=== PATIENT | female | born 1990 | race Caucasian/White ===

== ENCOUNTER 2021-10-29 11:59 | Day surgery (SDC) | payer OTHER ==
[2021-10-29 12:05] VITALS: BMI 28.9
[2021-10-29] MEDS ORDERED: ACETAMINOPHEN 1000 MG/100 ML BAG IVPB ONE (12:23)
[2021-10-29] MEDS ORDERED: SODIUM CHLORIDE 1,000 ML IV STA (12:23)
[2021-10-29] MEDS ORDERED: FAMOTIDINE 20 MG/50 ML IVPB 20 MG/50 ML MG IVPB ONE (12:28)
[2021-10-29] MEDS ORDERED: ACETAMINOPHEN INJECTION 100 ML IVPB ONE (12:37)
[2021-10-29] MEDS ORDERED: FAMOTIDINE 10 MG/ML VIAL IVPB ONE (12:37)
[2021-10-29 13:19] LABS: BASO % 0.7 % (0-2.0); EOS % 0.4 % (0-4.5); HEMATOCRIT 39.4 % (32.4-45.2); LYMPH % 31.1 % (8-40); MCH 28.4 pg (25.7-33.7); MEAN CELL VOLUME 86.3 fl (80-96); MEAN PLT VOLUME 6.7 fl (7.5-11.1); MONO % 6.6 % (3.8-10.2); NEUT % 61.2 % (42.8-82.8); PLATELET COUNT 415 10^3/uL (134-434); RBC 4.57 M/mm3 (3.60-5.2); RDW 14.3 % (11.6-15.6); WHITE BLOOD COUNT 8.8 K/mm3 (4.0-10.0)
[2021-10-29 13:47] LABS: CALCIUM 9.2 mg/dL (8.5-10.1)
[2021-10-29 13:48] LABS: BLOOD UREA NITROGEN 7.1 mg/dL (7-18)
[2021-10-29 13:51] LABS: CREATININE 0.6 mg/dL (0.55-1.3)
[2021-10-29 13:52] LABS: BILIRUBIN,TOTAL 0.7 mg/dL (0.2-1)
[2021-10-29 15:14] LABS: HCG,QUALITATIVE URINE Negative
[2021-10-29 15:34] LABS: URINE APPEARANCE CLEAR; URINE BILIRUBIN NEGATIVE (NEGATIVE); URINE COLOR YELLOW; URINE GLUCOSE (UA) NEGATIVE (NEGATIVE); URINE KETONE NEGATIVE (NEGATIVE); URINE LEUK ESTERASE NEGATIVE (NEGATIVE); URINE NITRITE NEGATIVE (NEGATIVE); URINE PROTEIN TRACE (NEGATIVE); URINE UROBILINOGEN 0.2 mg/dL (0.2-1.0)
[2021-10-29] MEDS ORDERED: ONDANSETRON 4 MG/2 ML VIAL IVPUSH PRN (22:48)
[2021-10-29] MEDS ORDERED: ACETAMINOPHEN 1000 MG/100 ML BAG IVPB PRN (22:49)
[2021-10-30] MEDS: LACTATED RINGERS SOLUTION 1,000 ML IV SCH ×3 (01:54→16:20)
[2021-10-30 09:05] LABS: HEMATOCRIT 37.8 % (32.4-45.2); HEMOGLOBIN 12.5 GM/dL (10.7-15.3); MCH 28.7 pg (25.7-33.7); MCHC 33.1 g/dl (32.0-36.0); MEAN CELL VOLUME 86.5 fl (80-96); MEAN PLT VOLUME 6.8 fl (7.5-11.1); PLATELET COUNT 391 10^3/uL (134-434); RBC 4.37 M/mm3 (3.60-5.2); RDW 14.1 % (11.6-15.6); WHITE BLOOD COUNT 8.1 K/mm3 (4.0-10.0)
[2021-10-30 09:33] LABS: MAGNESIUM 2.4 mg/dL (1.8-2.4)
[2021-10-30 09:34] LABS: BLOOD UREA NITROGEN 5.5 mg/dL (7-18)
[2021-10-30 09:37] LABS: CREATININE 0.6 mg/dL (0.55-1.3); PHOSPHOROUS 3.1 mg/dL (2.5-4.9)
[2021-10-30 11:40] LABS: INR 1.16 (0.83-1.09); PROTHROMBIN TIME (PATIENT) 13.4 SEC (9.7-13.0)
[2021-10-30 11:43] LABS: ACTIVATED PTT 33.5 SECONDS (25.2-36.5)
[2021-10-30] MEDS ORDERED: BENZOIN/ALOE VERA/STORAX/TOLU 58 ML BOTTLE ONE (12:54)
[2021-10-30] MEDS ORDERED: BUPIVACAINE HCL/PF 0.5% (5MG/ML) 10 ML VIAL ONE (12:54)
[2021-10-30] MEDS ORDERED: MIDAZOLAM HCL 2 MG/2 ML SINGLE DOSE VIAL ONE (13:25)
[2021-10-30] MEDS ORDERED: PROPOFOL 20 ML ONE ×2 (13:25→15:09)
[2021-10-30] MEDS ORDERED: LIDOCAINE HCL/PF 2% SDV 5ML VIAL ONE (13:26)
[2021-10-30] MEDS ORDERED: ROCURONIUM BROMIDE 50 MG/5 ML SYRINGE ONE (13:27)
[2021-10-30] MEDS ORDERED: ceFAZolin SODIUM 1 GM VIAL IVPB ONE (13:50)
[2021-10-30] MEDS ORDERED: BUPIVACAINE HCL/PF 0.5% (5MG/ML) 10 ML VIAL NR ONE (14:03)
[2021-10-30] MEDS ORDERED: DEXAMETHASONE SOD PHOSPHATE 4 MG/1 ML VIAL ONE (14:19)
[2021-10-30] MEDS ORDERED: ceFAZolin SODIUM 1 GM VIAL ONE (14:37)
[2021-10-30] MEDS ORDERED: ONDANSETRON 4 MG/2 ML VIAL ONE (15:02)
[2021-10-30] MEDS ORDERED: KETOROLAC TROMETHAMINE 30 MG/1 ML VIAL ONE (15:04)
[2021-10-30] MEDS ORDERED: GLYCOPYRROLATE 0.2 MG/1 ML VIAL ONE (15:04)
[2021-10-30] MEDS ORDERED: NEOSTIGMINE METHYLSULFATE 0.5 MG/1 ML - 10 ML MDV ONE (15:05)
[2021-10-30] MEDS ORDERED: oxyCODONE HCL 5 MG TABLET PO PRN ×2 (15:31)
[2021-10-30] MEDS ORDERED: ACETAMINOPHEN 1000 MG/100 ML BAG IVPB PRN (15:46)
[2021-10-30] MEDS ORDERED: ONDANSETRON 4 MG/2 ML VIAL IVPUSH PRN (15:46)
[2021-10-31] MEDS: LACTATED RINGERS SOLUTION 1,000 ML IV SCH (03:13)
[2021-10-31 12:16] VITALS: BP 122/69; PULSE 65; TEMP 98.2
== END 2021-10-31 15:13 | disposition home or self-care (01) ==
LOC: JER 11:59 → JASU-SURG 22:02 → SUATTDRO 22:02 → J8W 10-30 01:37 → JASU-SURG 10-31 15:13
PROVIDERS: ATTEND Internal Medicine
PROC: 0FT44ZZ Resection of Gallbladder, Percutaneous Endoscopic Approach (ICD-10-PCS; principal; 2021-10-29)
DX: K81.0 Acute cholecystitis (principal)
CPT/HCPCS: 36415; 74176-TC; 74177-TC; 76705-TC; 80048; 80053; 81003; 83036; 83690; 83735; 84100; 84443; 84703; 85025; 85027; 85610; 85730; 86850; 86900; 86901; 88304-TC; 93005; 93010; 94760; 99285-25; C9803-CS; Q9967; U0003; U0005

== ENCOUNTER 2021-11-05 15:35 | Day surgery (SDC) | payer OTHER ==
[2021-11-05] MEDS ORDERED: SODIUM CHLORIDE 0.9% 500 ML INFUS.BAG IV ONE (16:12)
[2021-11-05] MEDS ORDERED: ACETAMINOPHEN 1000 MG/100 ML BAG IVPB ONE (16:12)
[2021-11-05] MEDS ORDERED: ACETAMINOPHEN INJECTION 100 ML IVPB ONE (16:17)
[2021-11-05] MEDS ORDERED: ONDANSETRON 4 MG/2 ML VIAL IVPUSH ONE (17:02)
[2021-11-05] MEDS ORDERED: FAMOTIDINE 20 MG/50 ML IVPB 20 MG/50 ML MG IVPB ONE (17:02)
[2021-11-05 17:50] LABS: BASO % 0.3 % (0-2.0); EOS % 0.4 % (0-4.5); HEMATOCRIT 42.7 % (32.4-45.2); HEMOGLOBIN 14.3 GM/dL (10.7-15.3); LYMPH % 13.4 % (8-40); MCH 28.9 pg (25.7-33.7); MCHC 33.5 g/dl (32.0-36.0); MEAN CELL VOLUME 86.3 fl (80-96); MEAN PLT VOLUME 6.7 fl (7.5-11.1); MONO % 5.6 % (3.8-10.2); NEUT % 80.3 % (42.8-82.8); PLATELET COUNT 426 10^3/uL (134-434); RBC 4.94 M/mm3 (3.60-5.2); RDW 14.4 % (11.6-15.6); WHITE BLOOD COUNT 11.2 K/mm3 (4.0-10.0)
[2021-11-05 17:56] LABS: INR 1.15 (0.83-1.09); PROTHROMBIN TIME (PATIENT) 13.3 SEC (9.7-13.0)
[2021-11-05 17:58] LABS: ACTIVATED PTT 36.2 SECONDS (25.2-36.5)
[2021-11-05] MEDS ORDERED: FAMOTIDINE 10 MG/ML VIAL IVPB ONE (18:09)
[2021-11-05] MEDS ORDERED: ONDANSETRON 4 MG/2 ML VIAL ONE (18:09)
[2021-11-05 18:21] LABS: CALCIUM 10.2 mg/dL (8.5-10.1)
[2021-11-05 18:22] LABS: ALBUMIN 4.8 g/dl (3.4-5.0); BLOOD UREA NITROGEN 7.6 mg/dL (7-18)
[2021-11-05 18:25] LABS: CREATININE 0.7 mg/dL (0.55-1.3)
[2021-11-05 18:26] LABS: EPI CELLS 26 /uL (0-25.1); HYALINE CASTS 2 /uL (0-3.1); PH,URINE 6.5 (5.0-8.0); URINE APPEARANCE CLEAR; URINE BACTERIA 392 /uL (0-1359); URINE BILIRUBIN NEGATIVE (NEGATIVE); URINE COLOR DK YELLOW; URINE GLUCOSE (UA) NEGATIVE (NEGATIVE); URINE KETONE 1+ (NEGATIVE); URINE LEUK ESTERASE NEGATIVE (NEGATIVE); URINE NITRITE NEGATIVE (NEGATIVE); URINE PROTEIN 2+ (NEGATIVE); URINE RBC 51 /uL (0-23.9); URINE UROBILINOGEN 0.2 mg/dL (0.2-1.0); URINE WBC 10 /uL (0-25.8)
[2021-11-05 18:26] LABS: TOT PROT 9.3 g/dl (6.4-8.2)
[2021-11-05 18:27] LABS: BILIRUBIN,TOTAL 0.8 mg/dL (0.2-1)
[2021-11-05] MEDS ORDERED: PIPERACILLIN/TAZOB 3.375 GM 3.375 GM/50 ML BAG IVPB ONE (20:17)
[2021-11-05] MEDS: PIPERACILLIN/TAZOB 3.375 GM 3.375 GM in DEXTROSE 5%-WATER - 50 ML IVPB ONE ×2 (20:49→21:21)
[2021-11-05] MEDS ORDERED: LACTATED RINGERS SOLUTION 1,000 ML/1,000 ML INFUS.BAG IV SCH (23:45)
[2021-11-05] MEDS ORDERED: CEFOXITIN SODIUM 2 GM in DEXTROSE 5%-WATER - 100 ML IVPB SCH (23:45)
[2021-11-06] MEDS ORDERED: DEXTROSE 5%-WATER 100 ML IVPB ONE ×2 (01:33→10:27)
[2021-11-06] MEDS ORDERED: DOXYCYCLINE HYCLATE 100 MG VIAL ONE ×2 (01:33→10:26)
[2021-11-06] MEDS: DOXYCYCLINE INJECTION 100 MG in DEXTROSE 5%-WATER 100 ML IVPB SCH ×2 (01:42→10:30)
[2021-11-06] MEDS ORDERED: SODIUM CHLORIDE NASAL SPRAY 44 ML BOTTLE NS PRN ×2 (02:20→18:59)
[2021-11-06 02:30] VITALS: BMI 26.9
[2021-11-06 08:29] LABS: BASO % 0.4 % (0-2.0); EOS % 2.4 % (0-4.5); HEMATOCRIT 33.4 % (32.4-45.2); HEMOGLOBIN 11.4 GM/dL (10.7-15.3); LYMPH % 23.3 % (8-40); MCH 29.3 pg (25.7-33.7); MCHC 34.2 g/dl (32.0-36.0); MEAN CELL VOLUME 85.6 fl (80-96); MEAN PLT VOLUME 6.7 fl (7.5-11.1); MONO % 9.5 % (3.8-10.2); NEUT % 64.4 % (42.8-82.8); PLATELET COUNT 312 10^3/uL (134-434); RDW 14.4 % (11.6-15.6); WHITE BLOOD COUNT 8.8 K/mm3 (4.0-10.0)
[2021-11-06 09:00] LABS: BLOOD UREA NITROGEN 4.5 mg/dL (7-18); MAGNESIUM 1.9 mg/dL (1.8-2.4)
[2021-11-06 09:03] LABS: CREATININE 0.6 mg/dL (0.55-1.3)
[2021-11-06 09:04] LABS: BILIRUBIN,TOTAL 0.9 mg/dL (0.2-1)
[2021-11-06 09:17] LABS: ALBUMIN 3.3 g/dl (3.4-5.0); CALCIUM 8.4 mg/dL (8.5-10.1); TOT PROT 6.3 g/dl (6.4-8.2)
[2021-11-06] MEDS ORDERED: CEFOXITIN SODIUM 2 GM in DEXTROSE 5%-WATER - 100 ML IVPB SCH (12:00)
[2021-11-06] MEDS ORDERED: ACETAMINOPHEN 1000 MG/100 ML BAG IVPB ONE (13:30)
[2021-11-06] MEDS ORDERED: ACETAMINOPHEN 1000 MG/100 ML BAG IVPB PRN (15:17)
[2021-11-06] MEDS: CEFOXITIN SODIUM 2 GM in DEXTROSE 5%-WATER - 100 ML IVPB SCH (17:28)
[2021-11-06] MEDS ORDERED: AZTREONAM 1 GM in DEXTROSE 5%-WATER - 50 ML IVPB SCH (18:00)
[2021-11-06] MEDS ORDERED: CLINDAMYCIN 600MG PREMIX IVPB 600 MG/50 ML BAG IVPB SCH (18:00)
[2021-11-06] MEDS ORDERED: BUPIVACAINE HCL/PF 0.5% (5 MG/ML) 30 ML VIAL IJ ONE (18:13)
[2021-11-06] MEDS ORDERED: ACETAMINOPHEN 325 MG TABLET (FP) PO PRN (18:48)
[2021-11-06] MEDS ORDERED: ONDANSETRON 4 MG/2 ML VIAL IVPUSH PRN ×2 (18:48→18:59)
[2021-11-06] MEDS ORDERED: LACTATED RINGERS SOLUTION 1,000 ML/1,000 ML INFUS.BAG IV SCH (18:59)
[2021-11-06] MEDS ORDERED: oxyCODONE HCL 5 MG TABLET PO PRN ×2 (19:03→19:04)
[2021-11-06] MEDS ORDERED: IBUPROFEN 600 MG TABLET (FP) PO PRN (19:03)
[2021-11-06] MEDS: ACETAMINOPHEN 500 MG TABLET (FP) PO SCH (21:07)
[2021-11-06] MEDS ORDERED: DOXYCYCLINE INJECTION 100 MG in DEXTROSE 5%-WATER 100 ML IVPB SCH (22:00)
[2021-11-07] MEDS ORDERED: diphenhydrAMINE HCL 25 MG CAPSULE (FP) PO ONE (00:49)
[2021-11-07] MEDS ORDERED: CLINDAMYCIN 900 MG PREMIX IVPB 900 MG/50 ML BAG IVPB ONE (03:14)
[2021-11-07] MEDS ORDERED: AZTREONAM 2 GM/10 ML SYRINGE (RESTRICTED TO ID) IVPUSH ONE (03:15)
[2021-11-07] MEDS: ACETAMINOPHEN 500 MG TABLET (FP) PO SCH ×2 (06:10→14:12)
[2021-11-07] MEDS ORDERED: LACTATED RINGERS SOLUTION 1000 ML INFUS.BAG IV ONE (06:42)
[2021-11-07 08:32] LABS: BASO % 0.1 % (0-2.0); EOS % 0.2 % (0-4.5); HEMATOCRIT 32.9 % (32.4-45.2); HEMOGLOBIN 10.9 GM/dL (10.7-15.3); LYMPH % 11.9 % (8-40); MCH 28.7 pg (25.7-33.7); MCHC 33.2 g/dl (32.0-36.0); MEAN CELL VOLUME 86.5 fl (80-96); MEAN PLT VOLUME 7.1 fl (7.5-11.1); MONO % 7.6 % (3.8-10.2); NEUT % 80.2 % (42.8-82.8); PLATELET COUNT 304 10^3/uL (134-434); WHITE BLOOD COUNT 7.6 K/mm3 (4.0-10.0)
[2021-11-07 08:53] LABS: BLOOD UREA NITROGEN 4.7 mg/dL (7-18); CALCIUM 8.9 mg/dL (8.5-10.1)
[2021-11-07 08:57] LABS: CREATININE 0.5 mg/dL (0.55-1.3)
[2021-11-07] MEDS ORDERED: KETOROLAC TROMETHAMINE 30 MG/1 ML VIAL IVPUSH ONE (09:37)
[2021-11-07] MEDS ORDERED: ENOXAPARIN NA (PORCINE) 40 MG/0.4 ML DISP.SYRIN SQ SCH (10:30)
[2021-11-07] MEDS ORDERED: AZTREONAM 2 GM in DEXTROSE 5%-WATER 100 ML IVPB ONE (11:45)
[2021-11-07] MEDS ORDERED: AZTREONAM 2 GM VIAL (RESTRICTED TO ID) ONE (11:48)
[2021-11-07] MEDS ORDERED: DEXTROSE 5%-WATER 100 ML IVPB ONE (11:49)
[2021-11-07] MEDS ORDERED: DOXYCYCLINE HYCLATE 100 MG CAPSULE PO ONE (12:45)
[2021-11-07] MEDS ORDERED: AZITHROMYCIN 250 MG TABLET PO ONE (13:12)
[2021-11-07 15:54] VITALS: BP 113/73; PULSE 72; TEMP 98.5
== END 2021-11-07 17:39 | disposition home or self-care (01) ==
LOC: JER 15:35 → UNDOADMOB 20:25 → JERBED 20:25 → JASUSAT 20:25 → J8W 11-06 00:24 → JERBED 11-06 00:24 → JASUSAT 11-07 17:39
PROVIDERS: ATTEND Internal Medicine
PROC: 0DTJ4ZZ Resection of Appendix, Percutaneous Endoscopic Approach (ICD-10-PCS; principal; 2021-11-05)
DX: K35.80 Unspecified acute appendicitis (principal)
CPT/HCPCS: 36415; 71046-TC-FY; 74177-TC; 76705-TC; 76830-TC; 80048; 80053; 81003; 83605; 83690; 83735; 84703; 85025; 85610; 85730; 86850; 86900; 86901; 87040; 87086; 87491; 87591; 87661; 88304-TC; 93005; 93010; 94760; 99285-25; C9803-CS; U0003; U0005

== ENCOUNTER 2024-07-11 13:18 | Inpatient (IN) | payer OTHER ==
[2024-07-11 17:13] LABS: BASO % 0.6 % (0-2.0); EOS % 0.3 % (0-4.5); HEMATOCRIT 47.9 % (32.4-45.2); HEMOGLOBIN 15.5 GM/dL (10.7-15.3); LYMPH % 19.6 % (8-40); MCH 29.9 pg (25.7-33.7); MCHC 32.4 g/dl (32.0-36.0); MEAN CELL VOLUME 92.2 fl (80-96); MEAN PLT VOLUME 8.5 fl (7.5-11.1); MONO % 6.2 % (3.8-10.2); NEUT % 73.3 % (42.8-82.8); PLATELET COUNT 332 10^3/uL (134-434); RBC 5.19 M/mm3 (3.60-5.2); RDW 15.5 % (11.6-15.6); WHITE BLOOD COUNT 11.3 K/mm3 (4.0-10.0)
[2024-07-11 17:35] LABS: INR 0.77 (0.83-1.09); PROTHROMBIN TIME (PATIENT) 8.9 SEC (9.7-13.0)
[2024-07-11 17:36] LABS: ACTIVATED PTT 37.4 SECONDS (25.2-36.5)
[2024-07-11 17:40] VITALS: BMI 35.3
[2024-07-11 17:57] LABS: POTASSIUM 4.5 mmol/L (3.5-5.1)
[2024-07-11 17:58] LABS: CALCIUM 8.8 mg/dL (8.5-10.1)
[2024-07-11] MEDS: ELECTROLYTE-148 SOLN 1,000 ML IV SCH (18:00)
[2024-07-11 18:02] LABS: CREATININE 0.6 mg/dL (0.55-1.3)
[2024-07-11] MEDS ORDERED: BUTORPHANOL TARTRATE 2 MG/ML VIAL ONE (18:02)
[2024-07-11] MEDS: PROMETHAZINE HCL 25 MG/1 ML VIAL IVPB ONE (18:10)
[2024-07-11] MEDS: BUTORPHANOL TARTRATE 2 MG/ML VIAL IVPB ONE (18:10)
[2024-07-11] MEDS ORDERED: OXYTOCIN 30 UNITS in 0.9% NS 30 UNIT/500 ML INFUS.BAG IVPB ONE (22:05)
[2024-07-11] MEDS: OXYTOCIN 30 UNITS in 0.9% NS 30 UNIT/500 ML INFUS.BAG IVPB SCH (22:10)
[2024-07-12] MEDS ORDERED: FENTANYL/BUPIVACAINE/NS/PF - PCEA - 50 ML DISP.SYRIN EP ONE ×3 (00:59→10:55)
[2024-07-12] MEDS: ELECTROLYTE-148 SOLN 1,000 ML IV SCH (01:05)
[2024-07-12] MEDS ORDERED: NALOXONE HCL 0.4 MG/ML VIAL IVPUSH PRN (01:13)
[2024-07-12] MEDS: FENTANYL/BUPIVACAINE/NS/PF - PCEA - 50 ML DISP.SYRIN EP SCH (01:40)
[2024-07-12] MEDS ORDERED: PHENYLEPHRINE HCL 10 MG/1 ML SINGLE DOSE VIAL ONE (07:31)
[2024-07-12] MEDS ORDERED: KETOROLAC TROMETHAMINE 30 MG/1 ML VIAL ONE (07:33)
[2024-07-12] MEDS ORDERED: METOCLOPRAMIDE HCL INJECTION 10 MG/2 ML VIAL ONE (07:33)
[2024-07-12] MEDS ORDERED: LIDOCAINE HCL/PF 2% SDV 5ML VIAL ONE (07:33)
[2024-07-12] MEDS ORDERED: EPINEPHrine/PF 1 MG/1 ML (1:1,000) AMPULE ONE (07:33)
[2024-07-12] MEDS ORDERED: SODIUM CHLORIDE 0.9% P/F 10 ML VIAL IJ ONE ×2 (07:33→07:37)
[2024-07-12] MEDS ORDERED: DEXAMETHASONE SOD PHOSPHATE 4 MG/1 ML VIAL ONE (07:33)
[2024-07-12] MEDS ORDERED: ceFAZolin SODIUM 1 GM VIAL ONE (07:33)
[2024-07-12] MEDS ORDERED: OXYTOCIN 10 UNITS/ML VIAL ONE (07:33)
[2024-07-12] MEDS ORDERED: ONDANSETRON 4 MG/2 ML VIAL ONE (07:33)
[2024-07-12 11:11] LABS: RETICULOCYTES 2.39 % (0.5-1.5)
[2024-07-12] MEDS: LABETALOL HCL 200 MG TABLET (FP) PO ONE (11:25)
[2024-07-12] MEDS ORDERED: LABETALOL HCL 200 MG TABLET (FP) ONE (11:31)
[2024-07-12 11:43] LABS: URIC ACID 6.1 mg/dL (2.6-7.2)
[2024-07-12] MEDS ORDERED: MAGNESIUM 4GM/H20 - 4 GM/100 ML IVPB IVPB ONE (12:21)
[2024-07-12] MEDS: MAGNESIUM 4GM/H20 - 4 GM/100 ML IVPB IVPB SCH (12:40)
[2024-07-12] MEDS ORDERED: MAGNESIUM SULFATE 20GM/500ML - 20 GM/500 ML INFUS.BAG ONE ×2 (13:14→15:33)
[2024-07-12] MEDS: MAGNESIUM SULFATE 20GM/500ML - 20 GM/500 ML INFUS.BAG IV SCH (13:21)
[2024-07-12] MEDS ORDERED: FENTANYL CITRATE/PF 50 MCG/ML VIAL ONE (13:56)
[2024-07-12] MEDS ORDERED: AZITHROMYCIN IVPB 500 MG/250 ML BAG IVPB ONE (14:11)
[2024-07-12] MEDS ORDERED: OXYTOCIN 20 UNITS in 0.9% NS 20 UNIT/1,000 ML INFUS.BAG IV ONE (15:19)
[2024-07-12] MEDS ORDERED: METHYLERGONOVINE MALEATE 0.2 MG/1 ML AMP IM PRN (15:24)
[2024-07-12] MEDS ORDERED: MIDAZOLAM HCL 2 MG/2 ML SINGLE DOSE VIAL ONE (15:24)
[2024-07-12] MEDS: OXYTOCIN 20 UNITS in 0.9% NS 20 UNIT/1,000 ML INFUS.BAG IV SCH ×2 (15:30→16:00)
[2024-07-12 15:58] LABS: MAGNESIUM 2.1 mg/dL (1.8-2.4)
[2024-07-12 16:28] LABS: CORD HCO3 26.1 mmHg (20-29); CORD PCO2 61.9 mmHg (30-78); CORD pH 7.242 (7.14-7.44)
[2024-07-12 16:31] LABS: CORD HCO3 26.2 mmHg (20-29); CORD PCO2 71.1 mmHg (30-78); CORD pH 7.185 (7.14-7.44)
[2024-07-12 19:02] LABS: MAGNESIUM 5.2 mg/dL (1.8-2.4)
[2024-07-13] MEDS ORDERED: MAGNESIUM SULFATE 20GM/500ML - 20 GM/500 ML INFUS.BAG ONE ×2 (00:40→09:43)
[2024-07-13] MEDS ORDERED: ACETAMINOPHEN INJECTION 100 ML ONE ×2 (00:44→08:14)
[2024-07-13] MEDS: ACETAMINOPHEN 1000 MG/100 ML BAG IVPB PRN (00:48)
[2024-07-13] MEDS ORDERED: OXYTOCIN 20 UNITS in 0.9% NS 20 UNIT/1,000 ML INFUS.BAG IV ONE (04:25)
[2024-07-13 08:12] LABS: BASO % 0.2 % (0-2.0); EOS % 0.1 % (0-4.5); HEMATOCRIT 42.7 % (32.4-45.2); HEMOGLOBIN 13.9 GM/dL (10.7-15.3); LYMPH % 12.3 % (8-40); MCH 30.5 pg (25.7-33.7); MCHC 32.7 g/dl (32.0-36.0); MEAN CELL VOLUME 93.2 fl (80-96); MEAN PLT VOLUME 7.8 fl (7.5-11.1); MONO % 5.1 % (3.8-10.2); NEUT % 82.3 % (42.8-82.8); PLATELET COUNT 325 10^3/uL (134-434); RBC 4.58 M/mm3 (3.60-5.2); RDW 16.2 % (11.6-15.6)
[2024-07-13 08:22] LABS: CHLORIDE 103 mmol/L (98-107); POTASSIUM 4.5 mmol/L (3.5-5.1); SODIUM 135 mmol/L (136-145)
[2024-07-13 08:25] LABS: ALBUMIN 1.4 g/dl (3.4-5.0); ANION GAP 8 mmol/L (4-13); BLOOD UREA NITROGEN 11.4 mg/dL (7-18); CALCIUM 7.5 mg/dL (8.5-10.1); CO2 24 mmol/L (21-32)
[2024-07-13 08:26] LABS: GLUCOSE,RANDOM 73 mg/dL (74-106)
[2024-07-13 08:29] LABS: CREATININE 0.8 mg/dL (0.55-1.3); SGOT/AST 105 U/L (15-37); SGPT/ALT 135 U/L (13-61)
[2024-07-13 08:30] LABS: BILIRUBIN,TOTAL 0.8 mg/dL (0.2-1)
[2024-07-13 08:31] LABS: ALK PHOS 347 U/L (45-117)
[2024-07-13 09:54] LABS: MAGNESIUM 7.6 mg/dL (1.8-2.4)
[2024-07-13] MEDS ORDERED: FERROUS SO4 325 MG TABLET (FP) ONE (13:08)
[2024-07-13] MEDS ORDERED: PRENATAL VITAMINS W/ FOLIC ACID TABLET (FP) PO ONE (13:09)
[2024-07-13] MEDS: PRENATAL VITAMINS W/ FOLIC ACID TABLET (FP) PO SCH (13:13)
[2024-07-13] MEDS: FERROUS SO4 325 MG TABLET (FP) PO SCH (13:14)
[2024-07-13] MEDS ORDERED: oxyCODONE HCL 5 MG TABLET ONE (13:41)
[2024-07-13] MEDS: oxyCODONE HCL 5 MG TABLET PO PRN (13:42)
[2024-07-13] MEDS ORDERED: BISACODYL 10 MG SUPP.RECT RC PRN (15:24)
[2024-07-13] MEDS: SIMETHICONE 80 MG TAB.CHEW (FP) PO PRN (19:47)
[2024-07-13] MEDS: IBUPROFEN 600 MG TABLET (FP) PO PRN (21:48)
[2024-07-13 23:19] LABS: BASO % 0.2 % (0-2.0); HEMATOCRIT 40.7 % (32.4-45.2); HEMOGLOBIN 13.4 GM/dL (10.7-15.3); LYMPH % 4.5 % (8-40); MCH 30.2 pg (25.7-33.7); MCHC 32.9 g/dl (32.0-36.0); MEAN CELL VOLUME 91.9 fl (80-96); MEAN PLT VOLUME 7.3 fl (7.5-11.1); MONO % 3.9 % (3.8-10.2); NEUT % 91.4 % (42.8-82.8); PLATELET COUNT 351 10^3/uL (134-434); RBC 4.43 M/mm3 (3.60-5.2); RDW 16.2 % (11.6-15.6); WHITE BLOOD COUNT 21.6 K/mm3 (4.0-10.0)
[2024-07-13 23:40] LABS: ANISOCYTOSIS 2+; MACROCYTOSIS 0
[2024-07-13] MEDS: GENTAMICIN 80 MG PREMIXED IVPB 80 MG/100 ML BAG IVPB SCH (23:41)
[2024-07-13 23:48] LABS: EPI CELLS 6 /uL (0-25.1); HYALINE CASTS 1 /uL (0-3.1); PH,URINE 5.5 (5.0-8.0); URINE APPEARANCE CLOUDY; URINE BACTERIA 188 /uL (0-1359); URINE BILIRUBIN NEGATIVE (NEGATIVE); URINE COLOR RED; URINE GLUCOSE (UA) NEGATIVE (NEGATIVE); URINE KETONE NEGATIVE (NEGATIVE); URINE LEUK ESTERASE 2+ (NEGATIVE); URINE NITRITE NEGATIVE (NEGATIVE); URINE PROTEIN 2+ (NEGATIVE); URINE RBC 9243 /uL (0-23.9); URINE WBC 936 /uL (0-25.8)
[2024-07-13] MEDS: CLINDAMYCIN 600MG PREMIX IVPB 600 MG/50 ML BAG IVPB SCH (23:48)
[2024-07-14] MEDS: ACETAMINOPHEN 325 MG TABLET (FP) PO PRN (11:56)
[2024-07-14] MEDS: oxyCODONE HCL 5 MG TABLET PO PRN (17:08)
[2024-07-14] MEDS: AMPICILLIN - 2 GM in SODIUM CHLORIDE 100 ML IVPB SCH (19:47)
[2024-07-14] MEDS: GENTAMICIN 80 MG PREMIXED IVPB 80 MG/100 ML BAG IVPB SCH ×2 (19:47)
[2024-07-15 08:08] LABS: HEMATOCRIT 36.9 % (32.4-45.2); MCHC 32.6 g/dl (32.0-36.0); MEAN CELL VOLUME 92.1 fl (80-96); MEAN PLT VOLUME 7.1 fl (7.5-11.1); PLATELET COUNT 383 10^3/uL (134-434); RBC 4.01 M/mm3 (3.60-5.2); RDW 16.1 % (11.6-15.6); WHITE BLOOD COUNT 24.3 K/mm3 (4.0-10.0)
[2024-07-15 08:24] LABS: POTASSIUM 4.2 mmol/L (3.5-5.1)
[2024-07-15 08:26] LABS: ALBUMIN 1.2 g/dl (3.4-5.0); CALCIUM 8.2 mg/dL (8.5-10.1)
[2024-07-15 08:27] LABS: BLOOD UREA NITROGEN 8.4 mg/dL (7-18)
[2024-07-15 08:30] LABS: CREATININE 0.5 mg/dL (0.55-1.3)
[2024-07-15 08:31] LABS: BILIRUBIN,TOTAL 0.3 mg/dL (0.2-1); TOT PROT 4.7 g/dl (6.4-8.2)
[2024-07-15 09:31] LABS: ANISOCYTOSIS 0; MACROCYTOSIS 0
[2024-07-15] MEDS ORDERED: CEFAZOLIN 2 GM/D5W 2 GM/50 ML ML IVPB SCH (18:00)
[2024-07-15] MEDS: CEFOXITIN SODIUM/DEXTROSE,ISO 2 GM/50 ML BAG IVPB SCH (18:29)
[2024-07-16 07:47] LABS: HEMATOCRIT 39.2 % (32.4-45.2); HEMOGLOBIN 13.3 GM/dL (10.7-15.3); MCH 30.8 pg (25.7-33.7); MCHC 33.9 g/dl (32.0-36.0); MEAN PLT VOLUME 7.1 fl (7.5-11.1); PLATELET COUNT 517 10^3/uL (134-434); RBC 4.31 M/mm3 (3.60-5.2); WHITE BLOOD COUNT 20.7 K/mm3 (4.0-10.0)
[2024-07-16 09:02] LABS: ANISOCYTOSIS 0; MACROCYTOSIS 0
[2024-07-16 09:03] LABS: PLATELET ESTIMATE INCREASED
[2024-07-16] MEDS: ERTAPENEM SODIUM 1 GM in SODIUM CHLORIDE 50 ML IVPB SCH (17:22)
[2024-07-16 21:56] VITALS: RESP 18
[2024-07-17 08:06] LABS: BASO % 0.3 % (0-2.0); EOS % 1.8 % (0-4.5); HEMATOCRIT 38.8 % (32.4-45.2); HEMOGLOBIN 12.9 GM/dL (10.7-15.3); LYMPH % 13.3 % (8-40); MCH 30.7 pg (25.7-33.7); MCHC 33.3 g/dl (32.0-36.0); MEAN CELL VOLUME 92.4 fl (80-96); MONO % 8.2 % (3.8-10.2); NEUT % 76.4 % (42.8-82.8); PLATELET COUNT 566 10^3/uL (134-434); RDW 16.3 % (11.6-15.6); WHITE BLOOD COUNT 15.4 K/mm3 (4.0-10.0)
[2024-07-18 07:08] LABS: BASO % 0.4 % (0-2.0); EOS % 2.5 % (0-4.5); HEMATOCRIT 38.1 % (32.4-45.2); LYMPH % 17.6 % (8-40); MCH 31.3 pg (25.7-33.7); MCHC 34.2 g/dl (32.0-36.0); MEAN CELL VOLUME 91.4 fl (80-96); MEAN PLT VOLUME 6.7 fl (7.5-11.1); NEUT % 69.5 % (42.8-82.8); PLATELET COUNT 586 10^3/uL (134-434); RBC 4.17 M/mm3 (3.60-5.2); RDW 15.9 % (11.6-15.6); WHITE BLOOD COUNT 13.1 K/mm3 (4.0-10.0)
[2024-07-19 11:59] VITALS: BP 106/66; PULSE 94; TEMP 98.1
[2024-07-19] MEDS: NITROFURANTOIN MONOHYD/M-CRYST 100 MG CAPSULE PO SCH (16:16)
== END 2024-07-19 16:20 | disposition home or self-care (01) | DRG 540 ==
LOC: JDEL 13:18 → JLDR 15:39 → J3W 07-13 14:30
PROVIDERS: ADMIT Obstetrics & Gynecology Obstetrics; ATTEND Obstetrics & Gynecology Obstetrics
PROC: 10D00Z1 Extraction of Products of Conception, Low, Open Approach (ICD-10-PCS; principal; 2024-07-12)
DX: O14.14 Severe pre-eclampsia complicating childbirth (principal); O36.5930 Maternal care for other known or suspected poor fetal growth, third trimester, not applicable or unspecified; O99.214 Obesity complicating childbirth; O41.1230 Chorioamnionitis, third trimester, not applicable or unspecified; Z3A.38 38 weeks gestation of pregnancy; O26.893 Other specified pregnancy related conditions, third trimester; D72.829 Elevated white blood cell count, unspecified; O86.4 Pyrexia of unknown origin following delivery; J11.1 Influenza due to unidentified influenza virus with other respiratory manifestations; O35.8XX0 Maternal care for other (suspected) fetal abnormality and damage, not applicable or unspecified; B96.20 Unspecified Escherichia coli [E. coli] as the cause of diseases classified elsewhere; Z16.12 Extended spectrum beta lactamase (ESBL) resistance; Z37.0 Single live birth
CPT/HCPCS: 0241U-QW; 36415; 36600; 71045-TC-FY; 80048; 80053; 81003; 82803; 82977; 83010; 83605; 83735; 84450; 84460; 84550; 85025; 85032; 85045; 85610; 85730; 86780; 86850; 86900; 86901; 87040; 87086; 87186; 88307-TC; J0131